=== PATIENT | female | born 1980 | race Caucasian/White ===

== ENCOUNTER → 2018-10-24 | Outpatient (CLI) | payer OTHER ==
[2005-03-02 09:18] VITALS: TEMP 98.3
[~2018-10-24] MED LIST: NO HOME MEDICATIONS; VICODIN 5/5001 UDTAB PO
== END ==
LOC: COL.RAD 13:10
DX: G44.219 Episodic tension-type headache, not intractable (principal); R41.3 Other amnesia; R20.2 Paresthesia of skin